=== PATIENT | male | born 1965 | race Caucasian/White ===

== ENCOUNTER 2017-08-18 21:18 | Emergency (ER) | payer MEDICAID ==
[~2017-08-18] VITALS: Ht 182.9 cm; Wt 130.0 kg
[~2017-08-18 21:18] MED LIST: ALBU6.7H INH; ASPI81TA45 PO; DIPH25; DULO60 PO; LORA10 PO; LORTA5 PO; METO25 PO; NITR.4 SL; PACE200T4 PO; RANI150 PO; ZOCO40TA PO
[2017-08-18 21:47] VITALS: BP 168/93; PULSE 92; RESP 24; TEMP 98.3; O2SAT 96
[2017-08-18] MEDS ORDERED: KETOROLAC TROMETHAMINE 30 MG/ML (IVP) VIAL IV PUSH ONE (22:30)
--- NOTE | 2017-08-18 22:37 | PD ---
HPI Chief Complaint: Cardiac Complaint Time Seen by Provider: 22:23 Travel History International Travel<30 days: No Contact w/Intl Traveler<30days: No Traveled to known affect area: No History of Present Illness HPI 52-year-old male complains of low back pain. Patient states that he was getting up from lying down and started having severe low back pain. Patient has history of chronic low back pain in the past. Patient states that the pain aching pain and sharp pain started low back area with radiation to lower abdomen into the groin. Patient denies any injury. Patient denies any dysuria or frequency. Patient denies any fever chills. Patient denies any focal weakness or numbness of the extremity. Patient states that he started feeling his heart beating out of his chest. Patient denies any chest pain or shortness of breath. Patient denies any coughing congestion. Patient has history of CAD status post CABG with sternal wound infection in the past. Patient has history hypertension and hyperlipidemia. Patient also has history of neuropathy and fibromyalgia. Patient denies history of diabetes. Patient is a smoker. On a scale of 1-10 the back pain is an 8. PFSH Past Medical History Hx Anticoagulant Therapy: Yes (ASA) Arthritis: Yes Asthma: No Autoimmune Disease: No Blood Disorders: No Anxiety: Yes Depression: Yes Heart Rhythm Problems: No Cancer: No Cardiovascular Problems: Yes High Cholesterol: Yes Chemotherapy: No Chest Pain: Yes Congestive Heart Failure: No COPD: Yes Coronary Artery Disease: Yes Diabetes: No Diminished Hearing: No Endocrine: No Gastrointestinal Disorders: Yes (ACID REFLUX) GERD: Yes Genitourinary: Yes Headaches: No Hepatitis: No Hiatal Hernia: No Hypertension: Yes Immune Disorder: No Implanted Vascular Access Dvce: Yes Kidney Stones: No Musculoskeletal: Yes Neurologic: Yes Psychiatric: No Reproductive: No Respiratory: No Immunizations Current: Yes Migraines: Yes Myocardial Infarction: Yes (X2) Renal Failure: No Seizures: No Thyroid Disease: No Ulcer: No Influenza Vaccination: Yes Past Surgical History Abdominal Surgery: No AICD: No Cardiac Surgery: Yes (TRIP. BYPASS HEART) Coronary Artery Bypass Graft: Yes (TRIPLE CABG) Coronary Stent: Yes (X 2 IN 2004,2009) Ear Surgery: No Endocrine Surgery: No Genitourinary Surgery: No Gynecologic Surgery: No Joint Replacement: No Neurologic Surgery: No Oral Surgery: Yes Pacemaker: No Thoracic Surgery: No Tonsillectomy: Yes Other Surgery: Yes (HEART, TONSILS) Social History Alcohol Use: Yes (RARE) Tobacco Use: Yes (2-3 cig per day) Substance Use: Yes (MARIJUANA ) Allergies-Medications (Allergen,Severity, Reaction): Coded Allergies: vancomycin (Unverified Allergy, Mild, 08/18/17) rash cefepime (Unverified Allergy, Unknown, Diffuse rash, 08/18/17) Cefoxitin, Teflaro ceftaroline fosamil (Unverified Allergy, Unknown, Diffuse rash, 08/18/17) Cefoxitin, Teflaro *MDRO Multi-Drug Resistant Organism (Unverified Adverse Reaction, Unknown , 01/24/15) 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 MRSA chest wound 10/30/14 and 11/21/14. Reported Meds & Prescriptions Reported Meds & Active Scripts Active Hydrocodone/Acetaminophen 5 mg/325 mg 1 Tab 1 Tab PO Q6H PRN Loratadine 10 Mg Tab 10 Mg PO DAILY@17 Zantac 150 Mg Tab (Ranitidine HCl) 150 Mg Tab 150 Mg PO BID PRN . Duloxetine HCl 60 Mg Cap 60 Mg PO DAILY 30 Days Proventil Hfa (Albuterol Sulfate) 6.7 Gm Aero 1 Puff INH ONCE * SHAKE WELL BEFORE USE * Reported Benadryl 25 Mg Cap (Diphenhydramine Hcl) 25 Mg Cap 25 Mg .XX Pacerone 200 mg (Amiodarone HCl) 200 Mg Tab 1 Tab PO DAILY Metoprolol Tartrate 25 mg (Metoprolol Tartrate) 25 Mg Tab 25 Mg PO TID Zocor 40 mg (Simvastatin) 40 Mg Tab 1 Tab PO HS Aspirin 81 mg EC Lo-Dose (Aspirin) 81 Mg Tab 81 Mg PO DAILY Nitroglycerin 0.4 Mg Subl 0.4 Mg SL DIRECTED Review of Systems General / Constitutional: No: Fever Eyes: No: Visual changes HENT: No: Headaches Cardiovascular: No: Chest Pain or Discomfort Respiratory: No: Shortness of Breath Gastrointestinal: No: Abdominal Pain Genitourinary: No: Dysuria Musculoskeletal: No: Pain Skin: No Rash Neurologic: No: Weakness Psychiatric: No: Depression Endocrine: No: Polydipsia Hematologic/Lymphatic: No: Easy Bruising Physical Exam Narrative GENERAL: Well-nourished, well-developed patient. SKIN: Focused skin assessment warm/dry. HEAD: Normocephalic. EYES: No scleral icterus. No injection or drainage. NECK: Supple, trachea midline. No JVD or lymphadenopathy. CARDIOVASCULAR: Regular rate and rhythm without murmurs, gallops, or rubs. RESPIRATORY: Breath sounds equal bilaterally. No accessory muscle use. GASTROINTESTINAL: Abdomen soft, non-tender, nondistended. MUSCULOSKELETAL: No cyanosis, or edema. Well-healed scar anterior chest wall area. BACK: Patient has moderate tenderness on palpation of lumbar area, without obvious deformity. No CVA tenderness. Neurologic exam normal. Data Data Last Documented VS Vital Signs Date Time Temp Pulse Resp B/P (MAP) Pulse Ox O2 Delivery O2 Flow Rate FiO2 08/18/17 21:47 98.3 92 24 168/93 (118) 96 Orders Orders Ketorolac Inj (Toradol Inj) (08/18/17 22:30) Electrocardiogram (08/18/17 22:32) Iv Access Insert/Monitor (08/18/17 22:32) Ecg Monitoring (08/18/17 22:32) Spine, Lumbar - Ltd (Ap & Lat) (08/18/17 22:32) [facility] Medical Decision Making Medical Screen Exam Complete: Yes Emergency Medical Condition: Yes Interpretation(s) EKG shows sinus rhythm nonspecific ST-T wave change. 23:45 PM. Last Impressions Lumbar Spine X-Ray 08/18/172231 Signed Impressions: Service Date/Time: August 22:55 - CONCLUSION: Mild degenerative changes without acute abnormality. Avni Collazo Jr., MD Differential Diagnosis Differential diagnosis including lumbar strain, fracture, HNP. Narrative Course 52-year-old male with acute exacerbation of low back pain. Toradol 30 mg IV given. Norflex 60 mg IM given. Diagnosis Primary Impression: Acute exacerbation of chronic low back pain Patient Instructions: General Instructions Additional Instructions: Take medications as directed for pain. Follow-up with personal physician and orthopedist. Return if worse. Med/Other Pt SpecificInfo: Prescription(s) given Scripts Methocarbamol (Robaxin) 750 Mg Tab 750 MG PO QID for Muscle Spasm, #40 TAB 0 Refills Prov: Milton Richards MD 08/18/17 Meloxicam (Mobic) 15 Mg Tab 15 MG PO DAILY for Pain, #20 TAB 0 Refills Prov: Milton Richards MD 08/18/17 Disposition: 01 DISCHARGE HOME Condition: Stable Milton Richards MD August 18, 2017 22:37
--- NOTE | 2017-08-18 23:20 | RADRPT ---
EXAM DATE/TIME: 08/18/2017 22:55 [facility] COMPARISON: No previous studies available for comparison. INDICATIONS : Lower back pain; no known injury. MEDICAL HISTORY : Osteoarthritis. Myocardial infarction. Chronic obstructive pulmonary disease. L4/5 compression fr acture. CAD. SURGICAL HISTORY : CABG. ENCOUNTER: Initial ACUITY: 1 day PAIN SCORE: 6/10 LOCATION: Lumbar spine. FINDINGS: AP and lateral views of the lumbar spine show normal alignment. Anterior osteophyte production is see n at L2-L3, L3-L4 at L4-L5. Vertebral body heights and disc space heights well-maintained. No fractur e or dislocation. Scattered calcified atherosclerotic plaque involving the abdominal aorta. Overlying bowel gas pattern is partially visualized and normal. CONCLUSION: Mild degenerative changes without acute abnormality. Avni Collazo Jr., MD on August 18, 2017 at 23:17 Board Certified Radiologist. This report was verified electronically.
[2017-08-18] MEDS ORDERED: ROBA750T PO (23:49)
[2017-08-18] MEDS ORDERED: MOBI15TA PO (23:49)
[2017-08-19] MEDS ORDERED: ORPHENADRINE INJ 60 MG/2 ML AMP IM ONE
--- NOTE | 2017-08-19 14:18 | EKG ---
Date Performed: 08/18/2017 Time Performed: 21:59:02 PTAGE: 52 years EKG: Sinus rhythm POSSIBLE LEFT ATRIAL ENLARGEMENT BORDERLINE ECG PREVIOUS TRACING : 11/20/2014 14.13 Since the previous tracing, no significant change noted DOCTOR: Carlos Wong Interpretating Date/Time 08/19/2017 14:17:45
== END 2017-08-19 00:21 | disposition home or self-care (01) ==
LOC: NEPC 21:18
DX: M54.5 Low back pain (principal); G89.29 Other chronic pain; F12.90 Cannabis use, unspecified, uncomplicated; F17.210 Nicotine dependence, cigarettes, uncomplicated; I25.10 Atherosclerotic heart disease of native coronary artery without angina pectoris
CPT/HCPCS: 72100; 93005; 96372; 96374; 99284; J1885; J2360